=== PATIENT | male | born 1960 | race Caucasian/White ===

== ENCOUNTER → 2018-09-21 | Outpatient (CLI) | payer OTHER ==
--- NOTE | 2018-09-21 16:42 | PCVCIMAG ---
APPROVED REPORT Study performed: 09/21/2018 14:40:01 EXAM: Comprehensive 2D, Doppler, and color-flow Echocardiogram Patient Location: Echo lab Room #: 2Status: routine BSA: 2.38 HR: 86 bpmBP: 144/90 mmHg Rhythm: NSR Other Information Study Quality: Good Risk Factors: Cardiac Risk Factors: HTN Indications Tachycardia Hypertension/HDD 2D Dimensions IVSd: 10.39 (7-11mm)LVOT Diam: 24.91 (18-24mm) LVDd: 55.44 mm PWd: 10.10 (7-11mm)Ascending Ao: 33.74 (22-36mm) LVDs: 37.26 (25-40mm) Left Atrium: 34.35 (27-40mm) Aortic Root: 29.75 mm LV Single Plane 4CH: 55.45 % LV Single Plane 2CH: 59.13 % Biplane EF: 57.3 % Volumes Left Atrial Volume (Systole) Single Plane 4CH: 40.96 mLSingle Plane 2CH: 61.93 mL Biplane LA Volume: 52.00 mLLA ESV Index: 22.00 mL/m2 Aortic Valve AoV Peak Krishan.: 1.53 m/s AO Peak Gr.: 9.31 mmHgLVOT Max P.67 mmHg LVOT Max V: 1.08 m/s ALLISON Vmax: 3.45 cm2 Mitral Valve E/A Ratio: 0.9 MV Decel. Time: 190.93 ms MV E Max Krishan.: 0.56 m/s MV A Krishan.: 0.60 m/s TDI E/Lateral E': 6.22E/Medial E': 8.00 Medial E' Krishan.: 0.07 m/s Lateral E' Krishan.: 0.09 m/s Pulmonary Valve PV Peak Krishan.: 1.03 m/sPV Peak Gr.: 4.27 mmHg Pulmonary Vein P Vein S: 0.62 m/sP Vein A: 0.39 m/s P Vein D: 0.43 m/sP Vein A Dur.: 100.3 msec P Vein S/D Ratio: 1.44 Tricuspid Valve TR Peak Krishan.: 1.59 m/s TR Peak Gr.: 10.17 mmHg TV Vmax: 0.59 m/sPA Pressure: 17.00 mmHg Left Ventricle The left ventricle is normal size. There is normal LV segmental wall motion. There is normal left ventricular wall thickness. Left ventricular systolic function is normal. The left ventricular ejection fraction is within the normal range. LVEF is 55-60%. Mild diastolic dysfunction is present (impaired relaxation pattern). Right Ventricle The right ventricle is normal size. The right ventricular systolic function is normal. Atria The left atrium size is normal. The right atrium size is normal. Aortic Valve The aortic valve is normal in structure. No aortic regurgitation is present. There is no aortic valvular stenosis. Mitral Valve The mitral valve is normal in structure. There is no mitral valve regurgitation noted. No evidence of mitral valve stenosis. Tricuspid Valve The tricuspid valve is normal in structure. There is trace tricuspid valve regurgitation noted. Pulmonic Valve The pulmonary valve is normal in structure. There is no pulmonic valvular regurgitation. Great Vessels The aortic root is normal in size. The ascending aorta is normal in size. IVC is normal in size and collapses >50% with inspiration. Pericardium There is no pericardial effusion. There is no pleural effusion. <Conclusion> Left ventricular systolic function is normal. There is normal LV segmental wall motion. LVEF is 55-60%. Mild diastolic dysfunction is present (impaired relaxation pattern). The aortic valve is normal in structure. No aortic regurgitation or stenosis. The mitral valve is normal in structure. No mitral valve regurgitation. Pulmonary arter pressure could not be reliably ascertained There is no pericardial effusion.
--- NOTE | 2018-09-21 16:44 | PCVCIMAG ---
APPROVED REPORT Patient Location: Echo lab TREADMILL STRESS TEST Room #: 2 Stress Nurse: Lacy Guzman RN Indications: History of arrhythmis, hypertension The patient exercised according to the ANNITA protocol for 12:32 mins; achieving a work level of 15.3 METS. The resting heart rate of 96 bpm rosa to a maximum heart rate of 162 bpm. This value represent 100% of the maximal, age-predicted heart rate. The resting blood pressure of 144/90 mmHg, rosa to a maximum blood pressure of 240/100 mmHg. The exercise test was stopped due to fatigue . A hypertensive response to exercise was seen. Resting EKG: Sinus rhythm normal tracing Stress electrocardiogram: No ST segment shifts diagnostic of myocardial ischemia. Occasional, isolated premature ventricular complexes. Conclusion 1. Maximal treadmill exercise study negative for exercise-induced myocardial ischemia. 2. Rare ventricular ectopy. No diagnostic ischemic electrocardiographic changes. 3. This study was associated with good exercise capacity (15.3 METS). Hypertensive response to exercise Initiate lisinopril 20 mg daily. Prescription given.
== END | disposition home or self-care (01) ==
LOC: PCVCIMAG 14:37
PROVIDERS: ATTEND Internal Medicine
DX: I10 Essential (primary) hypertension (principal); R00.0 Tachycardia, unspecified
CPT/HCPCS: 93017; 93306